=== PATIENT | male | born 1985 | race Caucasian/White ===

== ENCOUNTER 2017-04-05 23:36 | Emergency (ER) | payer BC ==
[2017-04-06] VITALS: RESP 20
[2017-04-06] MEDS ORDERED: KETOROLAC 30 MG/ML 1 ML VIAL IM STA (01:04)
--- NOTE | 2017-04-06 01:22 | XR ---
EXAMINATION TYPE: XR lumbosacral spine min 4V DATE OF EXAM: 04/06/2017 COMPARISON: 01/06/2016 HISTORY: Back pain TECHNIQUE: 5 views FINDINGS: Lumbar vertebra have normal spacing and alignment. Posterior elements are intact. Sacroilia c joints appear normal. IMPRESSION: Negative lumbar spine exam. No change.
[2017-04-06] MEDS ORDERED: ACET/COD 300 MG/30 MG STARTER PACK 6 TAB BTL PO STA (01:59)
[2017-04-06] MEDS ORDERED: CYCLOBENZAPRINE 10MG STARTER 3 TAB BTL PO STA (01:59)
--- NOTE | 2017-04-06 02:02 | ED ---
Back Pain HPI - General Chief Complaint: Back Pain/Injury Stated Complaint: Back injury/working out Time Seen by Provider: 04/06/17 00:58 Source: patient Limitations: no limitations - History of Present Illness Initial Comments: 31-year-old male patient presents to the emergency department today with complaints of right lower back pain. Patient states that a couple hours prior to arrival he was lifting approximately 265 pounds, states when he was moving to a standing position with the wait he felt a pop in his right lower back and had sudden onset of sharp pain. He states that he did take ibuprofen however the pain has persisted. He is complaining of some numbness to his toes however states that he does generally have some minor numbness to this area. He denies any saddle anesthesia. Denies any loss of bowel or bladder control. Denies any difficulty ambulating. He states he does not generally have lower back pain. Patient denies any headache, neck pain, chest pain, shortness of breath, dizziness, weakness, abdominal pain, nausea, vomiting, or difficulties with bowel movements or urination. - Related Data Previous Rx's Medication Instructions Recorded Acetaminophen-Codeine 300-30mg 1 tab PO Q6H PRN #15 tablet 04/06/17 [Tylenol #3] Cyclobenzaprine [Flexeril] 10 mg PO TID #15 tab 04/06/17 Ibuprofen [Motrin] 600 mg PO Q8HR PRN #30 tab 04/06/17 Allergies Allergy/AdvReac Type Severity Reaction Status Date / Time No Known Allergies Allergy Verified 04/06/17 00:00 Review of Systems ROS Statement: Those systems with pertinent positive or pertinent negative responses have been documented in the HPI. ROS Other: All systems not noted in ROS Statement are negative. Past Medical History Additional Past Medical History / Comment(s): chronic back pain, crushed vertebrae, slipped disc History of Any Multi-Drug Resistant Organisms: None Reported Past Surgical History: No Surgical Hx Reported Past Psychological History: No Psychological Hx Reported Smoking Status: Current every day smoker Past Alcohol Use History: Occasional Past Drug Use History: None Reported General Exam Limitations: no limitations General appearance: alert, in no apparent distress, other (This is a well- developed, well-nourished adult male patient in no acute distress. Vital signs upon presentation were temperature 98.1F, pulse 114, respirations 20, blood pressure 141/77, pulse ox 100% on room air.) Eye exam: Present: normal appearance, PERRL, EOMI. Absent: scleral icterus, conjunctival injection, periorbital swelling Neck exam: Present: normal inspection, full ROM. Absent: tenderness, meningismus, lymphadenopathy Respiratory exam: Present: normal lung sounds bilaterally. Absent: respiratory distress, wheezes, rales, rhonchi, stridor Cardiovascular Exam: Present: regular rate, normal rhythm, normal heart sounds. Absent: systolic murmur, diastolic murmur, rubs, gallop, clicks GI/Abdominal exam: Present: soft, normal bowel sounds. Absent: distended, tenderness, guarding, rebound, rigid Extremities exam: Present: other (Skin to the lower extremities is pink, warm, and dry. Cap refills less than 3 seconds.) Back exam: Present: normal inspection, tenderness (Right lower back tenderness) , vertebral tenderness (Lumbar tenderness). Absent: rash noted Neurological exam: Present: alert, oriented X3, CN II-XII intact, other ( Strength in all 4 extremities is 5/5.) Psychiatric exam: Present: normal affect, normal mood Skin exam: Present: warm, dry, intact, normal color. Absent: rash Course Vital Signs 04/05/17 04/06/17 23:57 02:09 Temperature 98.1 F 97 F L Pulse Rate 114 H 77 Respiratory 20 20 Rate Blood Pressure 141/77 133/71 O2 Sat by Pulse 100 97 Oximetry Medical Decision Making - Medical Decision Making 31-year-old male patient presented for evaluation of sudden onset lower back pain during a lift of this 265 pounds. Physical examination did reveal some tenderness in the right lower back as well as over the lumbar spine. Patient had good strength in his lower extremities. Neurovascular status was intact. X-ray was obtained and showed no acute osseous abnormalities of the lumbosacral spine. Patient was given an IM dose of Toradol here as he was driving himself. He was given starter pack for Flexeril and Tylenol with Codeine. He is educated regarding application of ice and heat. He is instructed to follow-up with his primary care physician or orthopedics if his symptoms do not improve over the next 1-2 days. He is instructed to return here immediately for any new, worsening, or concerning symptoms. He verbalizes understanding and agrees with this plan. - Radiology Data Radiology results: report reviewed, image reviewed 5 views of the lumbosacral spine show the lumbar vertebrae abnormal spacing alignment. Posterior elements are intact. Sacroiliac joints appear normal. Impression by Dr. Hines shows negative lumbar spine exam. With no change. Disposition Clinical Impression: Acute back pain Disposition: HOME SELF-CARE Condition: Good Instructions: Acute Low Back Pain (ED), Warm Compress or Soak (ED) Additional Instructions: Apply ice for the first 24 hours to the painful areas. Do this 4 times a day at least 20 minutes at a time. After. Switch to warm moist heat. Again 20 minutes at a time at least 4 times per day. Take medications as directed. Follow-up with your primary care physician for recheck if your symptoms aren't improved. Return here immediately for any new, worsening, or concerning symptoms. Prescriptions: Acetaminophen-Codeine 300-30mg [Tylenol #3] 1 tab PO Q6H PRN #15 tablet PRN Reason: Pain Cyclobenzaprine [Flexeril] 10 mg PO TID #15 tab Ibuprofen [Motrin] 600 mg PO Q8HR PRN #30 tab PRN Reason: Pain Referrals: None,Stated [Primary Care Provider] - 1-2 days Jack Rene MD [STAFF PHYSICIAN] - 1-2 days Time of Disposition: 02:01
[2017-04-06 02:12] VITALS: BP 133/71; PULSE 77; TEMP 97
== END 2017-04-06 02:12 | disposition home or self-care (01) ==
LOC: EC 23:36
DX: M54.5 Low back pain (principal); R20.0 Anesthesia of skin; F17.200 Nicotine dependence, unspecified, uncomplicated
CPT/HCPCS: 72110; 99283; 96372; J1885